=== PATIENT | female | born 1975 | race Hispanic/Latino ===

== ENCOUNTER 2024-07-09 09:01 | Outpatient (CLI) | payer OTHER | END 2024-07-09 09:02 | disposition home or self-care (01) | LOC: CSHULT 09:01 | PROVIDERS: ATTEND Family Medicine | DX: R79.89 Other specified abnormal findings of blood chemistry (principal); K76.0 Fatty (change of) liver, not elsewhere classified | CPT/HCPCS: 76705 ==